=== PATIENT | male | born 1945 | race Two or more races ===

== ENCOUNTER 2024-01-25 07:46 | Emergency (ER) | payer OTHER ==
[~2024-01-25] VITALS: Ht 160 cm; Wt 61.2 kg
[~2024-01-25 07:46] MED LIST: AMLODIPINE BES2.5 MG; CARAFATE1 GM PO; COZAAR50 MG; INTESTINEX680 M1 PO; LIPITOR20 MG; NORVASC2.5 M1; PEPCID AC20 MG PO; PROTONIX40 M1
[2024-01-25 09:53] LABS: HEMATOCRIT 40.7 % (39.0-48.0); HEMOGLOBIN 13.6 g/dL (13-16.00); MEAN CELL VOLUME 95.3 fL (80.0-100.00); MEAN CORPUSCULAR HEMOGLOBIN 31.9 pg (27.00-32.0); MEAN CORPUSCULAR HGB CONC 33.5 g/dl (32.0-36.0); PLATELET COUNT 323 K/uL (150-450); RED BLOOD COUNT 4.27 M/uL (4.00-6.00)
[2024-01-25 10:14] LABS: CALCIUM 9.7 mg/dL (8.5-10.1); CREATININE SERUM 0.84 mg/dL (0.70-1.30); GFR 88.84; POTASSIUM 3.62 mEq/L (3.5-5.1)
[2024-01-25 10:19] LABS: PH,URINE 7.5 (5.0-8.0); URINE APPEARANCE Clear; URINE BILIRRUBIN Negative (NEGATIVE); URINE BLOOD Negative; URINE COLOR Yellow; URINE GLUCOSE Negative (NEGATIVE); URINE KETONE Negative (NEGATIVE); URINE LEUKOCYTE Negative; URINE NITRATE Negative; URINE PROTEIN Negative (NEGATIVE); URINE UROBILINOGEN 0.2 E.U./dl
[2024-01-25 10:31] LABS: URINE BACTERIA 0 uL (0.0-1933); URINE EPITHELIAL CELLS 0.3 uL (0.0-38.8); URINE RBC 1.5 uL (0.0-20.8); URINE WBC 0.4 uL (0.0-23.2)
[2024-01-25] MEDS ORDERED: SODIUM CHLORIDE 0.45 % 1,000 ML IV ONE (12:15)
== END 2024-01-25 12:10 | disposition home or self-care (01) ==
LOC: ER 07:48
PROVIDERS: General Practice
DX: M54.50 Low back pain, unspecified (principal); I10 Essential (primary) hypertension; Z85.46 Personal history of malignant neoplasm of prostate

== ENCOUNTER 2024-03-13 02:26 | Emergency (ER) | payer OTHER ==
[~2024-03-13] VITALS: Ht 167.6 cm; Wt 68.0 kg
== END 2024-03-13 04:22 | disposition home or self-care (01) ==
LOC: ER 02:26
DX: R53.81 Other malaise (principal); M43.6 Torticollis; I10 Essential (primary) hypertension